=== PATIENT | female | born 1960 | race Caucasian/White ===

== ENCOUNTER 2018-03-14 12:59 | Inpatient (IN) | payer MEDICAID, OTHER ==
[2018-03-14 15:28] LABS: BASO % 0.5 % (0.0-2.0); EOS # 0.1 K/uL (0.0-0.7); EOS % 1.6 % (0.0-4.0); HEMOGLOBIN 13.7 g/dL (11.0-16.0); LYMPH # 1.9 K/uL (1.0-4.3); LYMPH % 30.2 % (20.0-40.0); MEAN CORPUSCULAR HEMOGLOBIN 30.9 pg (27.0-31.0); MEAN CORPUSCULAR HGB CONC 34.3 g/dL (33.0-37.0); MEAN PLATELET VOLUME 8.2 fL (7.2-11.7); MONO # 0.3 K/uL (0.0-0.8); MONO % 4.6 % (0.0-10.0); NEUT # 4.1 K/uL (1.8-7.0); NEUT % 63.1 % (50.0-75.0); NRBC % 0.1 % (0.0-2.0); RBC 4.42 Mil/uL (3.80-5.20); RED CELL DISTRIBUTION WIDTH 13.7 % (11.5-14.5); WHITE BLOOD COUNT 6.4 K/uL (4.8-10.8)
[2018-03-14 15:49] LABS: ALB/GLOB RATIO 1.2 (1.0-2.1); ALBUMIN 4.5 g/dL (3.5-5.0); ALT/SGPT 22 U/L (9-52); AST/SGOT 29 U/L (14-36); BLOOD UREA NITROGEN 15 mg/dL (7-17); CALCIUM 9.6 mg/dl (8.6-10.4); GFR AFRICAN-AMERICAN > 60; GFR NON-AFRICAN AMERICAN > 60
[2018-03-14 15:50] LABS: SQUAMOUS EPITHIAL 2 /hpf (0-5); URINE BACTERIA RARE (<OCC); URINE BILIRUBIN NEGATIVE (NEGATIVE); URINE BLOOD NEGATIVE (NEGATIVE); URINE CLARITY Hazy (Clear); URINE COLOR Amber (YELLOW); URINE GLUCOSE (UA) NORMAL (Normal); URINE LEUKOCYTE ESTERASE TRACE Leu/uL (Negative); URINE PROTEIN NEGATIVE (NEGATIVE); URINE UROBILINOGEN NORMAL mg/dL (0.2-1.0)
[2018-03-14 16:11] LABS: BARBITURATES, UR NEGATIVE (NEGATIVE); OPIATES, UR NEGATIVE (NEGATIVE); PHENCYCLIDINE, UR NEGATIVE (NEGATIVE)
[2018-03-14 16:12] LABS: BENZODIAZEPINES, UR POSITIVE (NEGATIVE)
[2018-03-14 16:38] VITALS: O2SAT 97
--- NOTE | 2018-03-14 16:58 | C.PDOC ---
History Of Present Illness 57 y/o female presents to the ER complaining of depression and anxiety. Patient states that she [place] been living in the [place]. She has been unsuccessful at finding work and she has been staying at various locations. The first person who she lived with her was aggressive. The second person she lived with told her that she was too tearful and she could not manage her depression. Patient was told to leave the residence with her daughter who is disabled. She notes that she is very depressed. She has plans of cutting her wrists or jumping off a bridge. Denies having fever,chills, and abdominal pain. Time Seen by Provider: 03/14/18 13:36 Chief Complaint (Nursing): Psychiatric Evaluation History Per: Patient History/Exam Limitations: no limitations Onset/Duration Of Symptoms: Days Current Symptoms Are (Timing): Still Present Severity: Moderate Past Medical History Reviewed: Historical Data, Nursing Documentation, Vital Signs Vital Signs: Last Vital Signs Temp 97.9 F 03/18/18 06:30 Pulse 84 03/18/18 08:47 Resp 18 03/18/18 06:30 BP 106/62 03/18/18 08:47 Pulse Ox 97 03/14/18 17:30 - Medical History PMH: Diabetes Surgical History: No Surg Hx Family History: States: No Known Family Hx - Social History Hx Alcohol Use: No Hx Substance Use: No Review Of Systems Except As Marked, All Systems Reviewed And Found Negative. Constitutional: Negative for: Fever, Chills Gastrointestinal: Negative for: Abdominal Pain Psych: Positive for: Anxiety, Depression, Suicidal ideation Physical Exam - Physical Exam Appears: Non-toxic, Other (tearful) Skin: Normal Color, Warm, Dry Head: Atraumatic, Normacephalic Eye(s): bilateral: Normal Inspection Nose: Normal Oral Mucosa: Moist Neck: Supple Chest: Symmetrical Cardiovascular: Rhythm Regular Respiratory: Normal Breath Sounds, No Rales, No Rhonchi, No Wheezing Neurological/Psych: Oriented x3, Normal Speech ED Course And Treatment - Laboratory Results Result Diagrams: 03/14/18 15:24 03/14/18 15:24 O2 Sat by Pulse Oximetry: 97 (RA) Pulse Ox Interpretation: Normal Medical Decision Making Medical Decision Making: Plan: --Labs --UA --UDS Disposition Counseled Patient/Family Regarding: Studies Performed, Diagnosis - Disposition Disposition: HOSPITALIZED Disposition Time: 16:57 Condition: GOOD - Clinical Impression Clinical Impression: Depression (emotion) - Scribe Statement The provider has reviewed the documentation as recorded by the Simeon Leiva Provider Attestation: All medical record entries made by the Simeon were at my direction and personally dictated by me. I have reviewed the chart and agree that the record accurately reflects my personal performance of the history, physical exam, medical decision making, and the department course for this patient. I have also personally directed, reviewed, and agree with the discharge instructions and disposition. Decision To Admit - Pt Status Changed To: Hospital Disposition Of: Inpatient - Admit Certification Admit to Inpatient:: After my assessment, the patient will require hospitalization for at least two midnights. This is because of the severity of symptoms shown, intensity of services needed, and/or the medical risk in this patient being treated as an outpatient. - InPatient: Physician Admission Certification: I certify that this patient requires 2 or more midnights of care for the following reason:: major depresive disorder - . Bed Request Type: Psychiatry Patient Diagnosis: Depression (emotion)
--- NOTE | 2018-03-14 17:35 | PCM.BM ---
<Sanjeev Fitch - Last Filed: 03/14/18 17:32> Treatment Plan Problems - Problems identified on initial assessmt major depression Date Initiated: 03/14/18 Time Initiated: 17:33 Status: Active Treatment assets and liabiliti Patient Assests: cooperative, cognitively intact Patient Liabilities: medical problems (tpe 2 diabetic), unable to read/write, language/speech - Milieu Protocol Maintain good personal hygiene: daily Encourage regular showers, daily Remind patient to perform daily oral care, daily Assist patient to perform ADL's Conduct patient checks and document Observation sheet: Q15 minutes Maintain personal safety: every shift Educate patient to report safety concerns to staff, every shift Monitor environment for contraband/sharps Medication safety: Monitor for expected outcome, potential side effects: every shift, Assess barriers to learning: every shift, Assess readiness for medication education: every shift <Donavan Case - Last Filed: 03/15/18 13:21> - Diagnosis (1) Major depressive disorder, single episode Status: Acute Interventions: 03/15/18 13:21 * Assess/adjust medications daily and /or as needed * See patient on an individual basis 7x/week to assess symptoms of depression * Monitor for side effects & effectiveness of medications * <Melinda Stone - Last Filed: 03/16/18 15:09> Family Contact Family involvement: Family/SO is involved Family contact: Patient agrees to contact, Telephone contact initiated by staff - Goals for Treatment Patient goals for treatment: " I want to feel better." Discharge/Continuing Care - Education Needs Education Needs: Patient Medication, Patient Diagnosis/Disease Process, Patient Coping Skills, Patient Community resources, Patient Aftercare Safety Plan - Discharge Discharge Criteria: Free of Suicidal thoughts, Normal sleep pattern, Ability to care for self, Reduction of target symptoms Discharge to:: With Family - Treatment Team Participation Discussed with Family/SO: Yes Was Patient/Family/SO present at Treatment Team Meeting: Yes
[2018-03-14] MEDS ORDERED: metFORMIN 250 mg Tab PO SCH (20:00)
--- NOTE | 2018-03-15 13:18 | PCM.PSYCH ---
Initial Psychiatric Evaluation - Initial Psychiatric Evaluation Type of Admission: Voluntary Legal Status: Capacity Chief Complaint (in patient's own words): I was feeling very depressed.' History of Present Illness and Precipitating Events: Pt is a 57 yrs old HF, who just immigrated from [facility] a couple of years ago, presented to the ED with depressed mood and SI without plan. Pt was seen with the support dba. Pt denies any history of any inpatient psychiatric hospitalizations and denies any history of follow up with any psychiatrist. Pt reports that she has been feeling depressed for over a month and also experiencing panic attacks and unable to sleep at night. Pt remained depressed and tearful during the interview. Patient reports that she went to the [facility] almost a month ago because of depression and suicidal ideation. She reports that she still has thoughts to harm herself. However, she denies prior attempts. Pt is unable to explain triggers or stressors that are making her depressed, except unemployment and recent immigration. Pt reports she resides wither her daughter, Justine who is 25 and a couple. Pt reports depressed mood, feelings of hopelessness and helplessness. She is repeatedly stating she "just wants to disappear", and " she just wants to . "She denies any homicidal ideation. She denies any auditory or visual hallucinations or any psychotic symptoms. She denies any manic symptoms and denies any other substance abuse. However, urine toxicology is positive for marihuana. PMH DM Current Medications: Active Medications Generic Name Dose Route Start Last Admin Trade Name Freq PRN Reason Stop Dose Admin Acetaminophen 650 mg 03/14/18 19:46 Tylenol 325mg Tab PO Q6 PRN Fever >100.4 F Benztropine Mesylate 2 mg 03/14/18 19:46 Cogentin PO Q6 PRN Extra Pyramidal Symptoms Diphenhydramine HCl 50 mg 03/14/18 19:46 Benadryl PO Q6 PRN Extra Pyramidal Symptoms Haloperidol 5 mg 03/14/18 19:46 Haldol PO Q8 PRN Moderate Agitation Hydroxyzine HCl 25 mg 03/14/18 19:47 03/14/18 21:13 Atarax PO 25 mg Q6 PRN Administration Anxiety Metformin HCl 850 mg 03/14/18 18:00 03/15/18 09:57 Glucophage PO 850 mg DAILY DONY Administration Trazodone HCl 50 mg 03/14/18 22:00 03/14/18 21:13 Desyrel PO 50 mg HS DONY Administration Past Psychiatric History - Past Psychiatric History Previous Treatment History: None Pertinent Medical Hx (Current Medical&Sleep Prob, Allergies): Allergies Allergy/AdvReac Type Severity Reaction Status Date / Time No Known Allergies Allergy Unverified 03/14/18 13:23 LORazepam 03/14/18 MetFORMIN 03/14/18 Review of Systems - Review of Systems All systems: reviewed and no additional remarkable complaints except - Psychiatric Psychiatric: Anxiety, Behavioral Changes, Depression, Suicidal Ideation Mental Status Examination - Personal Presentation Personal Presentation: Looks stated age - Affect Affect: Constricted, Depressed - Motor Activity Motor Activity: Calm - Reliability in Providing Information Reliability in Providing Information: Fair - Speech Speech: Organized - Mood Mood: Depressed, Anxious - Formal Thought Process Formal Thought Process: No Impairment - Obsessions/Compulsions Obsessions: No Compulsions: No - Cognitive Functions Orientation: Person, Place, Situation, Time Sensorium: Alert Attention/Concentration: Attentive Abstract Thinking: [place] Estimate of Intelligence: Below average Judgement: Imparied, as evidence by: Poor judgement, Imparied, as evidence by: Lack of insight into illness - Risk Risk: Suicidal, Diminished functioning - Strength & Assets Inventory Strength & Assets Inventory: Family support DSM 5 DX - DSM 5 DSM 5 Diagnosis: Major depressive disorder recurrent severe without psychotic features Cannabis use disorder mild - Recommended/Plan of Treatment Treatment Recommendations and Plan of Treatment: Major depressive disorder recurrent severe without psychotic features -Psychoeducation -Supportive therapy, group therapy, individual therapy -Sertraline 50 mg PO Daily -Trazodone 50 mg by mouth daily at bedtime -Hydroxyzine prn Cannabis use disorder mild -Psychoeducation -Supportive therapy, group therapy, individual therapy -Use [place] for abstinence DM -Continue Metformin 850 - Smoking Cessation Smoking Cessation Initiated: No
--- NOTE | 2018-03-16 10:07 | PCM.PYCHPN ---
Psychiatric Progress Note - Psychiatric Progress Note Patient seen today, length of contact: 15 min Patient Chief Complaint: I was feeling very depressed.' Problems Identified/Issues Discussed: Patient seen and evaluated, chart reviewed and discussed with the nurse. She reports depressed mood and feelings of hopelessness and helplessness. She still reports suicidal ideation without any plan. She reports anxiety and panic attacks. Patient remained isolated, confined and withdrawn. Patient is compliant with medications and denies any side effects. Symptoms are improving but need more time to stabilize. Support and psychoeducation given. Medication Change: Yes Medical Record Reviewed: Yes Mental Status Examination - Cognitive Function Orientation: Person, Place, Situation, Time Memory: Intact Attention: WNL Concentration: Poor Association: WNL Fund of Knowledge: Poor - Mood Mood: Depressed, Anxious - Affect Affect: Constricted, Depressed - Speech Speech: Soft - Formal Thought Process Formal Thought Process: No Impairment - Suicidal Ideation Suicidal Ideation: No - Homicidal Ideation Homicidal Ideation: No Goal/Treatment Plan - Goal/Treatment Plan Need for Continued Stay: Severe depression anxiety, Severe functional impairment Progress Toward Problem(s) and Goals/Treatment Plan: Major depressive disorder recurrent severe without psychotic features -Psychoeducation -Supportive therapy, group therapy, individual therapy -Sertraline 100 mg PO Daily -Trazodone 50 mg by mouth daily at bedtime -Hydroxyzine prn Cannabis use disorder mild -Psychoeducation -Supportive therapy, group therapy, individual therapy -Use [place] for abstinence DM -Continue Metformin 850 - Smoking Cessation Smoking Cessation Initiated: No
--- NOTE | 2018-03-18 01:22 | PCM.PYCHPN ---
Psychiatric Progress Note - Psychiatric Progress Note Patient seen today, length of contact: 15 min Patient Chief Complaint: I m feeling depressed.' Problems Identified/Issues Discussed: Patient seen and evaluated, chart reviewed and discussed with the nurse. She reports depressed mood and feelings of hopelessness and helplessness. She still reports suicidal ideation without any plan. She reports anxiety and panic attacks. Patient remained isolated, confined and withdrawn. Patient is compliant with medications and denies any side effects. Symptoms are improving but need more time to stabilize. Support and psychoeducation given. Medication Change: Yes (start neurotnin) Medical Record Reviewed: Yes Mental Status Examination - Cognitive Function Orientation: Person, Place, Situation, Time Memory: Intact Attention: WNL Concentration: Poor Association: WNL Fund of Knowledge: Poor - Mood Mood: Depressed, Anxious - Affect Affect: Constricted, Depressed - Speech Speech: Soft - Formal Thought Process Formal Thought Process: No Impairment - Suicidal Ideation Suicidal Ideation: No - Homicidal Ideation Homicidal Ideation: No Goal/Treatment Plan - Goal/Treatment Plan Need for Continued Stay: Severe depression anxiety, Severe functional impairment Progress Toward Problem(s) and Goals/Treatment Plan: Major depressive disorder recurrent severe without psychotic features -Psychoeducation -Supportive therapy, group therapy, individual therapy -Sertraline 100 mg PO Daily -Trazodone 50 mg by mouth daily at bedtime -Hydroxyzine prn -Neurontin 100 mg pO TID Cannabis use disorder mild -Psychoeducation -Supportive therapy, group therapy, individual therapy -Use [place] for abstinence DM -Continue Metformin 850
[2018-03-19] MEDS ORDERED: Magnesium Hydroxide Susp 30 ml UD PO ONE ×2 (12:47→14:00)
--- NOTE | 2018-03-19 20:50 | PCM.PYCHPN ---
Psychiatric Progress Note - Psychiatric Progress Note Patient seen today, length of contact: 15 min Patient Chief Complaint: "Down" Problems Identified/Issues Discussed: The pt is seen, chart reviewed, case discussed with staff. The pt is compliant with medications and reports no side-effects. Symptoms are improving but needs more time to stabilize. After care discussed, support and psychoeducation given. Medication Change: No Medical Record Reviewed: Yes Mental Status Examination - Cognitive Function Orientation: Person, Place, Situation, Time Memory: Intact Attention: WNL Concentration: Poor Association: WNL Fund of Knowledge: Poor - Mood Mood: Depressed, Anxious - Affect Affect: Constricted, Depressed - Speech Speech: Soft - Formal Thought Process Formal Thought Process: No Impairment - Suicidal Ideation Suicidal Ideation: No - Homicidal Ideation Homicidal Ideation: No Goal/Treatment Plan - Goal/Treatment Plan Need for Continued Stay: Severe depression anxiety, Discharge may exacerbated symptoms, Severe functional impairment Progress Toward Problem(s) and Goals/Treatment Plan: Continue medications Support and psychoeducation daily Attend groups and activities daily After care planning by MARKEL
--- NOTE | 2018-03-20 06:19 | PCM.PYCHPN ---
Psychiatric Progress Note - Psychiatric Progress Note Patient seen today, length of contact: 15 min Patient Chief Complaint: "Not good' Problems Identified/Issues Discussed: The pt is seen, chart reviewed, case discussed with staff. Support given, psychoed used briefly No new symptoms reported, improving slowly and needs more time No SEs from medications, risks discussed. After care discussed briefly Medication Change: No Medical Record Reviewed: Yes Mental Status Examination - Cognitive Function Orientation: Person, Place, Situation, Time Memory: Intact Attention: WNL Concentration: Poor Association: WNL Fund of Knowledge: Poor - Mood Mood: Depressed, Anxious - Affect Affect: Constricted, Depressed - Speech Speech: Soft - Formal Thought Process Formal Thought Process: No Impairment - Suicidal Ideation Suicidal Ideation: No - Homicidal Ideation Homicidal Ideation: No Goal/Treatment Plan - Goal/Treatment Plan Need for Continued Stay: Severe depression anxiety, Discharge may exacerbated symptoms, Severe functional impairment Progress Toward Problem(s) and Goals/Treatment Plan: Continue medications Support and psychoeducation daily Attend groups and activities daily After care planning by MARKEL
--- NOTE | 2018-03-20 11:20 | PCM.PYCHPN ---
Psychiatric Progress Note - Psychiatric Progress Note Patient seen today, length of contact: 15 min Patient Chief Complaint: I m feeling depressed.' Problems Identified/Issues Discussed: Patient seen and evaluated, chart reviewed and discussed with the nurse. She still reports depressed mood but reports some improvement in her feelings of hopelessness and helplessness. She reports anxiety and panic attacks. Patient remained isolated, confined and withdrawn. Patient is compliant with medications and denies any side effects. Symptoms are improving but need more time to stabilize. Support and psychoeducation given. Medication Change: Yes (increase zoloft) Medical Record Reviewed: Yes Mental Status Examination - Cognitive Function Orientation: Person, Place, Situation, Time Memory: Intact Attention: WNL Concentration: Poor Association: WNL Fund of Knowledge: Poor - Mood Mood: Depressed, Anxious - Affect Affect: Constricted, Depressed - Speech Speech: Soft - Formal Thought Process Formal Thought Process: No Impairment - Suicidal Ideation Suicidal Ideation: No - Homicidal Ideation Homicidal Ideation: No Goal/Treatment Plan - Goal/Treatment Plan Need for Continued Stay: Severe depression anxiety, Discharge may exacerbated symptoms, Severe functional impairment Progress Toward Problem(s) and Goals/Treatment Plan: Major depressive disorder recurrent severe without psychotic features -Psychoeducation -Supportive therapy, group therapy, individual therapy -Sertraline 200 mg PO Daily -Trazodone 100 mg by mouth daily at bedtime -Hydroxyzine prn -Neurontin 100 mg pO BID Cannabis use disorder mild -Psychoeducation -Supportive therapy, group therapy, individual therapy -Use [place] for abstinence DM -Continue Metformin 850 - Smoking Cessation Smoking Cessation Initiated: No
[2018-03-20] MEDS: Bisacodyl 5mg EC Tab PO SCH (18:46)
[2018-03-21] MEDS: Bisacodyl 5mg EC Tab PO SCH ×2 (09:08→17:31)
--- NOTE | 2018-03-21 10:57 | PCM.PYCHPN ---
Psychiatric Progress Note - Psychiatric Progress Note Patient seen today, length of contact: 15 min Patient Chief Complaint: I m feeling depressed.' Problems Identified/Issues Discussed: Patient seen and evaluated, chart reviewed and discussed with the nurse. She still reports depressed mood but reports some improvement in her feelings of hopelessness and helplessness. She reports anxiety and panic attacks. Patient remained isolated, confined and withdrawn. Patient is compliant with medications and denies any side effects. Symptoms are improving but need more time to stabilize. Support and psychoeducation given. Medication Change: Yes (increase trazodone, d/c gabapentin) Medical Record Reviewed: Yes Mental Status Examination - Cognitive Function Orientation: Person, Place, Situation, Time Memory: Intact Attention: WNL Concentration: Poor Association: WNL Fund of Knowledge: Poor - Mood Mood: Depressed, Anxious - Affect Affect: Constricted, Depressed - Speech Speech: Soft - Formal Thought Process Formal Thought Process: No Impairment - Suicidal Ideation Suicidal Ideation: No - Homicidal Ideation Homicidal Ideation: No Goal/Treatment Plan - Goal/Treatment Plan Need for Continued Stay: Severe depression anxiety, Discharge may exacerbated symptoms, Severe functional impairment Progress Toward Problem(s) and Goals/Treatment Plan: Major depressive disorder recurrent severe without psychotic features -Psychoeducation -Supportive therapy, group therapy, individual therapy -Sertraline 200 mg PO Daily -Trazodone 100 mg by mouth daily at bedtime -Hydroxyzine prn -Neurontin 100 mg pO BID Cannabis use disorder mild -Psychoeducation -Supportive therapy, group therapy, individual therapy -Use [place] for abstinence DM -Continue Metformin 850
[2018-03-22] MEDS: Bisacodyl 5mg EC Tab PO SCH ×2 (10:38→17:45)
--- NOTE | 2018-03-22 11:18 | PCM.PYCHPN ---
Psychiatric Progress Note - Psychiatric Progress Note Patient seen today, length of contact: 15 min Patient Chief Complaint: I m feeling depressed.' Problems Identified/Issues Discussed: Patient seen and evaluated, chart reviewed and discussed with the nurse. She still reports depressed mood but reports some improvement in her feelings of hopelessness and helplessness. She reports anxiety and panic attacks. Patient remained isolated, confined and withdrawn. Patient is compliant with medications and denies any side effects. Symptoms are improving but need more time to stabilize. Support and psychoeducation given. Medication Change: Yes (d/c zoloft, start neurontin) Medical Record Reviewed: Yes Mental Status Examination - Cognitive Function Orientation: Person, Place, Situation, Time Memory: Intact Attention: WNL Concentration: Poor Association: WNL Fund of Knowledge: Poor - Mood Mood: Depressed, Anxious - Affect Affect: Constricted, Depressed - Speech Speech: Soft - Formal Thought Process Formal Thought Process: No Impairment - Suicidal Ideation Suicidal Ideation: No - Homicidal Ideation Homicidal Ideation: No Goal/Treatment Plan - Goal/Treatment Plan Need for Continued Stay: Severe depression anxiety, Discharge may exacerbated symptoms, Severe functional impairment Progress Toward Problem(s) and Goals/Treatment Plan: Major depressive disorder recurrent severe without psychotic features -Psychoeducation -Supportive therapy, group therapy, individual therapy -d/c Sertraline 200 mg PO Daily -Trazodone 100 mg by mouth daily at bedtime -Hydroxyzine prn - Start Welbutrin 100 mg Cannabis use disorder mild -Psychoeducation -Supportive therapy, group therapy, individual therapy -Use [place] for abstinence DM -Continue Metformin 850
--- NOTE | 2018-03-22 11:27 | PCM.BM ---
<Mayte Beth - Last Filed: 03/22/18 11:26> Treatment Plan Problems - Problems identified on initial assessmt major depression Date Initiated: 03/14/18 Time Initiated: 17:33 Status: Active Treatment assets and liabiliti Patient Assests: cooperative, cognitively intact Patient Liabilities: medical problems (tpe 2 diabetic), unable to read/write, language/speech - Milieu Protocol Maintain good personal hygiene: daily Encourage regular showers, daily Remind patient to perform daily oral care, daily Assist patient to perform ADL's Conduct patient checks and document Observation sheet: Q15 minutes Maintain personal safety: every shift Educate patient to report safety concerns to staff, every shift Monitor environment for contraband/sharps Medication safety: Monitor for expected outcome, potential side effects: every shift, Assess barriers to learning: every shift, Assess readiness for medication education: every shift Milieu Narrative: Major depressive disorder recurrent severe without psychotic features -Psychoeducation -Supportive therapy, group therapy, individual therapy -d/c Sertraline 200 mg PO Daily -Trazodone 100 mg by mouth daily at bedtime -Hydroxyzine prn - Start Welbutrin 100 mg Cannabis use disorder mild -Psychoeducation -Supportive therapy, group therapy, individual therapy -Use [place] for abstinence DM -Continue Metformin 850 Family Contact Family involvement: Family/SO is involved Family contact: Patient agrees to contact Family contacted how many times per week?: 2 Family contact comment: "My mother needs help with getting benefits." - Goals for Treatment Patient goals for treatment: "I want help with government benefits." Patient's family/SO goals for treatment: "For my mother to get help." Discharge/Continuing Care - Education Needs Education Needs: Patient Medication, Patient Diagnosis/Disease Process, Patient Coping Skills, Patient Community resources, Patient Aftercare Safety Plan - Discharge Discharge Criteria: Free of Suicidal thoughts, Normal sleep pattern, Ability to care for self, Reduction of target symptoms Discharge to:: With Family - Treatment Team Participation Patient/Family/SO Statement: Major depressive disorder recurrent severe without psychotic features -Psychoeducation -Supportive therapy, group therapy, individual therapy -d/c Sertraline 200 mg PO Daily -Trazodone 100 mg by mouth daily at bedtime -Hydroxyzine prn - Start Welbutrin 100 mg Cannabis use disorder mild -Psychoeducation -Supportive therapy, group therapy, individual therapy -Use [place] for abstinence DM -Continue Metformin 850 Discussed with Family/SO: Yes Was Patient/Family/SO present at Treatment Team Meeting: Yes Treatment Plan Review - Problem major depression Time Initiated: 17:33 - Discharge / Continuing Care Discharge to:: Home, With Family Behavioral Health Services: Outpatient therapy Health Needs: Medications/Rx <Sonia Rain - Last Filed: 03/22/18 13:19> Treatment Plan Review - Problem major depression Date Initiated: 03/22/18 Time Initiated: 13:19 Progress toward outcomes: improved
[2018-03-23 06:16] VITALS: RESP 18
[2018-03-24 05:52] VITALS: TEMP 97.5
[2018-03-24 08:33] VITALS: BP 98/65; PULSE 81
--- NOTE | 2018-03-24 10:45 | PCM.PYCHDC ---
Mental Status Examination - Mental Status Examination Orientation: Person, Place, Situation, Time Memory: Intact Mood: Neutral Affect: Constricted Speech: Soft Attention: WNL Concentration: WNL Association: WNL Fund of Knowledge: WNL Formal Thought Process: No Impairment Description of patient's judgement and insight: GOOD, fair Psychotic Thoughts and Behaviors: denies any AVH Suicidal Ideation: No Current Homicidal Ideation?: No Discharge Summary - Discharge Note Reason for Hospitalization: Pt is a 57 yrs old HF, who just immigrated from [facility] a couple of years ago, presented to the ED with depressed mood and SI without plan. Pt was seen with the mechanical handyman. Pt denies any history of any inpatient psychiatric hospitalizations and denies any history of follow up with any psychiatrist. Pt reports that she has been feeling depressed for over a month and also experiencing panic attacks and unable to sleep at night. Pt remained depressed and tearful during the interview. Patient reports that she went to the [facility] almost a month ago because of depression and suicidal ideation. She reports that she still has thoughts to harm herself. However, she denies prior attempts. Pt is unable to explain triggers or stressors that are making her depressed, except unemployment and recent immigration. Pt reports she resides wither her daughter, Justine who is 25 and a couple. Pt reports depressed mood, feelings of hopelessness and helplessness. She is repeatedly stating she "just wants to disappear", and " she just wants to . "She denies any homicidal ideation. She denies any auditory or visual hallucinations or any psychotic symptoms. She denies any manic symptoms and denies any other substance abuse. However, urine toxicology is positive for marihuana. Laboratory Data: Abnormal Lab Results 03/24/18 07:33 POC Glucose (mg/dL) 116 H Consultations:: List each consultation separately and include: 1. Reason for request. 2. Findings. 3. Follow-up Summary of Hospital Course include:: 1. Description of specific treatment plan utilized for patients during their course of treatmen. 2. Summarize the time- course for resolution of acute symptoms and/or regressed behaviors. 3. Describe issues identified and worked on during hospitalization. 4. Describe medication utilized. 5. Describe medical problems identified and treated. 6. Reassessment of suicide risk Summary of Hospital Course: Pt is a 57 yrs old HF, who just immigrated from [facility] a couple of years ago, presented to the ED with depressed mood and SI without plan. Pt was seen with the mechanical handyman. Pt denies any history of any inpatient psychiatric hospitalizations and denies any history of follow up with any psychiatrist. Pt reports that she has been feeling depressed for over a month and also experiencing panic attacks and unable to sleep at night. Pt remained depressed and tearful during the interview. Patient reports that she went to the [facility] almost a month ago because of depression and suicidal ideation. She reports that she still has thoughts to harm herself. However, she denies prior attempts. Pt is unable to explain triggers or stressors that are making her depressed, except unemployment and recent immigration. Pt reports she resides wither her daughter, Justine who is 25 and a couple. Pt reports depressed mood, feelings of hopelessness and helplessness. She is repeatedly stating she "just wants to disappear", and " she just wants to . "She denies any homicidal ideation. She denies any auditory or visual hallucinations or any psychotic symptoms. She denies any manic symptoms and denies any other substance abuse. However, urine toxicology is positive for marihuana. PMH DM - Diagnosis (1) Major depressive disorder, single episode Current Visit: Yes Status: Acute - Final Diagnosis (DSM 5) Condition upon Discharge: GOOD Disposition: HOME/ ROUTINE Follow-up Treatment Plan: Major depressive disorder recurrent severe without psychotic features -Psychoeducation -Supportive therapy, group therapy, individual therapy -d/c Sertraline 200 mg PO Daily -Trazodone 100 mg by mouth daily at bedtime -Hydroxyzine prn - Start Welbutrin 100 mg Cannabis use disorder mild -Psychoeducation -Supportive therapy, group therapy, individual therapy -Use [place] for abstinence DM -Continue Metformin 850 Prescriptions/Medication Reconciliation: buPROPion [Wellbutrin] 100 mg PO DAILY #30 tab hydrOXYzine HCl [Atarax] 25 mg PO BID PRN #60 tab PRN Reason: Anxiety metFORMIN [glucOPHAGE] 850 mg PO DAILY #30 tab traZODone [Desyrel] 100 mg PO HS #60 tab
== END 2018-03-24 14:35 | disposition home or self-care (01) | DRG 885 ==
LOC: C.ER 12:59 → C.5E 16:58
PROVIDERS: ADMIT Psychiatry & Neurology Psychiatry; ATTEND Psychiatry & Neurology Psychiatry
PROC: GZHZZZZ Group Psychotherapy (ICD-10-PCS; principal; 2018-03-14)
PROC: GZ3ZZZZ Medication Management (ICD-10-PCS; 2018-03-14)
DX: F33.2 Major depressive disorder, recurrent severe without psychotic features (principal); F41.0 Panic disorder [episodic paroxysmal anxiety]; F12.90 Cannabis use, unspecified, uncomplicated; F19.10 Other psychoactive substance abuse, uncomplicated; E11.9 Type 2 diabetes mellitus without complications; Z79.4 Long term (current) use of insulin